=== PATIENT | female | born 1960 | race Caucasian/White ===

== ENCOUNTER → 2019-08-18 10:00 | Outpatient (CLI) | payer OTHER, SELFPAY | PROVIDERS: PCP Internal Medicine | DX: Z20.828 Contact with and (suspected) exposure to other viral communicable diseases (principal); B34.8 Other viral infections of unspecified site | CPT/HCPCS: 87635; G2023; U0003 ==

== ENCOUNTER → 2021-01-08 13:01 | Outpatient (CLI) | payer OTHER, SELFPAY | PROVIDERS: PCP Internal Medicine; Visit Provider Family Medicine | DX: Z23 Encounter for immunization (principal) | CPT/HCPCS: 0004A; 91300 ==

== ENCOUNTER → 2025-01-24 | Outpatient (CLI) | payer OTHER, SELFPAY ==
--- NOTE | 2025-01-24 09:26 | RAD_ITS ---
PROCEDURE: HIP, UNI W/ PELVIS 2-3 VIEWS 01/24/2025 REASON FOR EXAM: PAIN TECHNIQUE: Procedure Code: [facility] Modality: DX Procedure: HIP, UNI W/ PELVIS 2-3 VIEWS Laterality: Right COMPARISON: None FINDINGS: The bony pelvis is intact. The SI joints are normal. There is no significant degenerative disc disease, L2-3 through L5-S1. There are no soft tissue abnormalities. AP only view of the left hip demonstrates no evidence of fracture or dislocation. There is no significant arthropathy. The periarticular soft tissues are normal. AP and lateral views of the right hip demonstrate no evidence of acute fracture or dislocation. There is an old avulsion fracture of the greater trochanter. There is no significant arthropathy. The periarticular soft tissues are normal. RAD/HIP, UNI W/ Pelvis 2-3 Views IMPRESSION: No significant abnormality of the right hip. There is an old avulsion fracture of the greater trochanter consistent with remote injury to the gluteal attachment. Perhaps the patient has trochanteric bursiti s. Reading Location: [place] [id number]
== END | disposition home or self-care (01) ==
PROVIDERS: PCP Internal Medicine; Referring Provider Internal Medicine; Visit Provider Internal Medicine
DX: M25.551 Pain in right hip (principal)
CPT/HCPCS: 73502